=== PATIENT | male | born 1955 | race Caucasian/White ===

== ENCOUNTER 2017-10-27 09:17 | Outpatient (CLI) | payer OTHER | END 2017-10-27 09:18 | disposition home or self-care (01) | LOC: BICRAD 09:17 | PROVIDERS: ATTEND Internal Medicine Critical Care Medicine | DX: J18.9 Pneumonia, unspecified organism (principal) | CPT/HCPCS: 71046 ==

== ENCOUNTER 2018-02-20 13:48 | Emergency (ER) | payer OTHER ==
[2018-02-20 14:07] LABS: #Basophils 0.1 thou/uL (0.0-0.2); #Eosinphils 0.1 thou/uL (0.0-0.7); #Lymphocytes 1.9 thou/uL (1.20-3.40); #Monocytes 0.8 thou/uL (0.11-0.59); #Neutrophils 7.2 thou/uL (1.40-6.50); %Basophils 0.8 % (0.0-1.0); %Eosinophils 0.7 % (0.0-10.0); %Lymphocytes 19.1 % (21.0-51.0); %Monocytes 7.7 % (0.0-10.0); %Neutrophils 71.7 % (42.0-75.0); Hemoglobin 15.4 g/dL (14.0-18.0); Mean Corpuscular HGB CONC 34.8 g/dL (32.0-36.0); Mean Corpuscular Hemoglobin 32.1 pg (27.0-31.0); Mean Corpuscular Volume 92.3 fL (78.0-98.0); Mean Platelet Volume 7.8 fL (7.4-10.4); Platelet Count 210 thou/uL (130-400); RBC Distribution Width 10.8 % (11.5-14.5); Red Blood Cell (RBC) Count 4.78 mill/uL (4.70-6.10); White Blood Cell (WBC) Count 10.1 thou/uL (4.8-10.8)
[2018-02-20 14:20] LABS: Anion Gap 14 mmol/L (10-20); BUN (Urea Nitrogen) 20 mg/dL (8.4-25.7); Calc. Creatinine Clearance 0 mL/min (70-130); Calcium 9.8 mg/dL (7.8-10.44); Carbon Dioxide 22 mmol/L (23-31); Chloride 108 mmol/L (98-107); Estimated GFR-MDRD Greater than 90; Glucose 113 mg/dL (80-115); Magnesium 2.2 mg/dL (1.6-2.6); Potassium 3.9 mmol/L (3.5-5.1); Sodium 140 mmol/L (136-145)
[2018-02-20 14:24] LABS: Troponin I Less than 0.010 ng/mL (< 0.028)
[2018-02-20 14:27] LABS: CKMB 9.3 ng/mL (0-6.6)
[2018-02-20] MEDS ORDERED: Ketorolac Tromethamine 30 MG/ML VIAL ONE (14:45)
--- NOTE | 2018-02-20 15:04 | RAD ---
SINGLE VIEW OF THE CHEST: COMPARISON: 10/18/16. History Chest pain that began 3-1/2 weeks ago and worsened today. FINDINGS: A single view of the chest shows a normal-size cardiomediastinal silhouette. The patient is status p ost sternotomy. There is no evidence of consolidation, mass, or pleural effusion. IMPRESSION: No evidence of acute cardiopulmonary disease. POS: [facility]
[2018-02-20 16:23] LABS: Troponin I Less than 0.010 ng/mL (< 0.028)
== END 2018-02-20 16:32 | disposition home or self-care (01) ==
LOC: SCSER 13:48
DX: R07.9 Chest pain, unspecified (principal); I10 Essential (primary) hypertension; E11.9 Type 2 diabetes mellitus without complications; E78.5 Hyperlipidemia, unspecified; Z79.899 Other long term (current) drug therapy; Z79.82 Long term (current) use of aspirin
CPT/HCPCS: 71045; 80048; 82553; 83735; 84484; 85025; 93005; 96361; 96374; J1885

== ENCOUNTER 2018-09-14 04:00 | Emergency (ER) | payer OTHER ==
[2018-09-14] MEDS ORDERED: Nitroglycerin 2% Ointment 1 INCH/1 GM Packet ONE (04:14)
[2018-09-14] MEDS ORDERED: Pantoprazole 40 MG VIAL ONE (04:36)
[2018-09-14] MEDS ORDERED: Ondansetron PF 4 MG/2 ML Vial ONE (04:36)
[2018-09-14 04:44] LABS: #Basophils 0.1 thou/uL (0.0-0.2); #Eosinphils 0.3 thou/uL (0.0-0.7); #Lymphocytes 2.3 thou/uL (1.20-3.40); #Monocytes 0.8 thou/uL (0.11-0.59); #Neutrophils 4.5 thou/uL (1.40-6.50); %Eosinophils 3.6 % (0.0-10.0); %Lymphocytes 28.8 % (21.0-51.0); %Monocytes 9.6 % (0.0-10.0); %Neutrophils 56.9 % (42.0-75.0); Hemoglobin 16.9 g/dL (14.0-18.0); Mean Corpuscular HGB CONC 34.3 g/dL (32.0-36.0); Mean Corpuscular Hemoglobin 32.6 pg (27.0-31.0); Mean Corpuscular Volume 95.3 fL (78.0-98.0); Mean Platelet Volume 7.9 fL (7.4-10.4); Platelet Count 209 thou/uL (130-400); RBC Distribution Width 11.6 % (11.5-14.5); Red Blood Cell (RBC) Count 5.18 mill/uL (4.70-6.10); White Blood Cell (WBC) Count 7.8 thou/uL (4.8-10.8)
[2018-09-14 04:49] LABS: ALT (SGPT) 48 U/L (8-55); AST (SGOT) 32 U/L (5-34); Albumin 4.3 g/dL (3.4-4.8); Alkaline Phosphatase 103 U/L (40-150); Anion Gap 14 mmol/L (10-20); BUN (Urea Nitrogen) 24 mg/dL (8.4-25.7); Bilirubin, Total 0.4 mg/dL (0.2-1.2); Calc. Creatinine Clearance 0 mL/min (70-130); Calcium 9.5 mg/dL (7.8-10.44); Carbon Dioxide 22 mmol/L (23-31); Chloride 108 mmol/L (98-107); Estimated GFR-MDRD 83; Globulin 2.9 g/dL (2.4-3.5); Glucose 134 mg/dL (80-115); Potassium 3.8 mmol/L (3.5-5.1); Protein, Total 7.2 g/dL (5.8-8.1); Sodium 140 mmol/L (136-145)
[2018-09-14] MEDS ORDERED: Acetaminophen 500 MG TAB ONE (06:21)
[2018-09-14 07:39] LABS: Troponin I Less than 0.010 ng/mL (< 0.028)
--- NOTE | 2018-09-14 08:23 | RAD ---
CHEST 1 VIEW: Date: 09/14/18 HISTORY: Pain. COMPARISON: 02/20/18. FINDINGS: There are sternotomy wires. Normal cardiac silhouette. Pulmonary vessels and hilum are normal. Costop hrenic angles are clear. No masses or consolidation. No pneumothorax or osseous abnormalities. IMPRESSION: No acute cardiopulmonary process. POS: [facility]
== END 2018-09-14 08:02 | disposition home or self-care (01) ==
LOC: SCSER 04:00
DX: R07.2 Precordial pain (principal); E11.9 Type 2 diabetes mellitus without complications; E78.5 Hyperlipidemia, unspecified; I10 Essential (primary) hypertension; Z79.82 Long term (current) use of aspirin; Z79.899 Other long term (current) drug therapy
CPT/HCPCS: 71045; 80053; 83880; 84484; 85025; 93005; 96374; 96375; C9113; J2405

== ENCOUNTER 2018-10-28 13:21 | Outpatient (CLI) | payer OTHER ==
--- NOTE | 2018-10-28 15:38 | RAD ---
CERVICAL SPINE SERIES SEVEN VIEWS: History: Neck pain. FINDINGS: The vertebral bodies are normal in height. Degenerative osteophytes are seen. There is minimal disc n arrowing at C6-7. There are degenerative facet changes noted. I do not see any significant abnormal m otion on the flexion or extension views. IMPRESSION: Moderate arthritic changes of the spine. POS: [facility]
--- NOTE | 2018-10-28 15:40 | MRI ---
MR OF THE CERVICAL SPINE WITHOUT CONTRAST: 10/28/18 INDICATION: 63-year-old male with neck pain and left upper extremity weakness ongoing fore eight weeks. TECHNIQUE: Multiplanar and multisequence MR images were obtained in the cervical spine without IV contrast. No r adiographs, CT or MR comparisons are available. FINDINGS: The visualized posterior fossa has a normal appearance. The craniocervical junction appears within normal limits. There are mild degenerative changes seen at the atlantoaxial articulation. At C2-3, there is a mild broad based bulge with mild facet joint degenerative changes but no apprecia ble central canal or neural foraminal narrowing. At C3-4, there is uncovertebral hypertrophy and facet joint degenerative change. The facet joint dege nerative changes and uncovertebral hypertrophy is greater on the left inducing moderate to severe lef t and mild right neural foraminal narrowing. Broad based bulge mildly effaces the ventral subarachnoi d space but without cord contact. At C4-5, there is a broad based bulge with uncovertebral hypertrophy and facet joint degenerative drew nge inducing mild to moderate left and mild right neural foraminal narrowing. The mild broad based bu lge does mildly efface the ventral subarachnoid space without cord contact. At C5-6, there is uncovertebral hypertrophy and facet hypertrophy inducing moderate bilateral neural foraminal narrowing. The broad based bulge causes mild ventral effacement of the subarachnoid space w ithout cord contact. At C6-7, there is mild facet joint degenerative change and mild uncovertebral hypertrophy. There is m ild right neural foraminal encroachment. At C7-T1, there is no appreciable central canal or neural foraminal narrowing. IMPRESSION: Moderate spondylosis of the cervical spine with moderate to severe left neural foraminal narrowing at C3-4. There is mild to moderate left neural foraminal narrowing at C4-5 and moderate bilateral neura l foraminal narrowing at C5-6. POS: [facility]
== END 2018-10-28 13:22 | disposition home or self-care (01) ==
LOC: MRI 13:21
PROVIDERS: ATTEND Anesthesiology Pain Medicine
DX: M47.812 Spondylosis without myelopathy or radiculopathy, cervical region (principal); M48.02 Spinal stenosis, cervical region
CPT/HCPCS: 72052; 72141

== ENCOUNTER 2019-11-05 08:25 | Emergency (ER) | payer OTHER ==
[2019-11-05 09:10] LABS: #Eosinphils 0.3 thou/uL (0.0-0.7); #Monocytes 0.6 thou/uL (0.11-0.59); #Neutrophils 3.7 thou/uL (1.40-6.50); %Basophils 0.3 % (0.0-1.0); %Lymphocytes 29.9 % (21.0-51.0); %Monocytes 9.4 % (0.0-10.0); %Neutrophils 55.3 % (42.0-75.0); Hemoglobin 15.7 g/dL (14.0-18.0); Mean Corpuscular HGB CONC 33.2 g/dL (32.0-36.0); Mean Corpuscular Hemoglobin 32.9 pg (27.0-31.0); Mean Corpuscular Volume 99.1 fL (78.0-98.0); Mean Platelet Volume 8.1 fL (7.4-10.4); Platelet Count 216 thou/uL (130-400); RBC Distribution Width 11.3 % (11.5-14.5); Red Blood Cell (RBC) Count 4.78 mill/uL (4.70-6.10); White Blood Cell (WBC) Count 6.8 thou/uL (4.8-10.8)
[2019-11-05 09:37] LABS: ALT (SGPT) 31 U/L (8-55); AST (SGOT) 20 U/L (5-34); Albumin 4.2 g/dL (3.4-4.8); Alkaline Phosphatase 95 U/L (40-110); Anion Gap 11 mmol/L (10-20); BUN (Urea Nitrogen) 21 mg/dL (8.4-25.7); Bilirubin, Total 0.4 mg/dL (0.2-1.2); Calc. Creatinine Clearance 0 mL/min (70-130); Calcium 9.3 mg/dL (7.8-10.44); Carbon Dioxide 26 mmol/L (23-31); Chloride 107 mmol/L (98-107); Estimated GFR-MDRD 68; Globulin 2.8 g/dL (2.4-3.5); Glucose 144 mg/dL (80-115); Potassium 4.4 mmol/L (3.5-5.1); Sodium 140 mmol/L (136-145)
== END 2019-11-05 10:48 | disposition home or self-care (01) ==
LOC: ERS 08:25
DX: R55 Syncope and collapse (principal); E11.9 Type 2 diabetes mellitus without complications; I10 Essential (primary) hypertension; E78.5 Hyperlipidemia, unspecified; Z79.82 Long term (current) use of aspirin; Z79.899 Other long term (current) drug therapy; Z79.84 Long term (current) use of oral hypoglycemic drugs
CPT/HCPCS: 36416; 80053; 84484; 85025; 93005

== ENCOUNTER 2020-02-10 15:07 | Outpatient (CLI) | payer OTHER ==
--- NOTE | 2020-02-10 15:55 | RAD ---
Exam: 4 views lumbar spine HISTORY: Acute lumbar radiculopathy. Low back pain extending down the right leg FINDINGS: 5 lumbar type vertebra. Lumbar spine vertebral body height is maintained. No fracture. In t he neutral upright position, there is 1.7 mm of retrolisthesis of L1 upon L2. No spondylolysis. There is osteophyte formation at L1-L2, L2-L3, L3-L4 and L5-S1. There is mild loss of disc space heig ht at L1-L2. Disc space height is preserved from L2-L3 through L5-S1. Upon extension and flexion, no significant change in alignment with regards to the retrolisthesis of L1 upon L2. Minimal atherosclerosis of the aorta Visualized bony pelvis and sacrum are intact There is osteophyte formation along the distal thoracic spine IMPRESSION: 1. Grade 1 retrolisthesis of L1 upon L2. 2. Osteophyte formation involving the distal thoracic spine and upper lumbar spine. No significant lo ss of disc space height. 3. No fracture.
--- NOTE | 2020-02-10 16:09 | MRI ---
MRI lumbar spine noncontrast: HISTORY: Acute Lumbar radiculopathy COMPARISON: None FINDINGS: Appropriate T1 marrow signal intensity of the lumbar vertebra. Lumbar spine vertebral body height is maintained. There is no fracture. No MR evidence of spondylolisthesis or spondylolysis. Spondylolisthesis noted on the lumbar spine radiograph is not apparent on the current MRI. No significant STIR hyperintensity to suggest vertebral body edema or ligamentous injury Appropriate signal intensity visualized paraspinal muscles and solid organs Conus medullaris terminates at the upper aspect of L1 T12-L1:Adequate disc hydration. No significant central canal stenosis or significant neural foraminal narrowing L1-L2:Adequate disc hydration. No posterior disc abnormality. No significant central canal stenosis o r significant neural foraminal narrowing L2-L3:Adequate disc hydration. No posterior disc abnormality. No significant central canal stenosis o r significant neural foraminal narrowing L3-L4:Adequate disc hydration. No posterior disc abnormality. Mild right facet hypertrophy. No signif icant central canal stenosis. Mild right foraminal narrowing, due to disc material and facet hypertrophy. Patent left neural foramen. L4-L5:Adequate disc hydration. Broad-based disc bulge minimally flattens the ventral thecal sac. Ther e is no significant central canal stenosis. There is mild to moderate bilateral facet hypertrophy. Trace amount of fluid in the left facet joint. Right neural foramen is mildly narrowed. Mild to moder ate left foraminal narrowing due to disc material and facet hypertrophy. L5-S1:Adequate disc hydration. No severe loss of disc space height. Broad-based disc bulge minimally contacts the ventral thecal sac. Disc material encroaches upon the right subarticular zone and minimally contacts the traversing right S1 nerve root. Left subarticular zone is unremarkable. There is no significant stenosis of the thecal sac. Mild bilateral foraminal narrowing, due to disc material. IMPRESSION: 1. No significant central canal stenosis or significant neural foraminal narrowing throughout the lum bar spine. 2. Mild to moderate facet hypertrophy at L4-L5 and mild right facet hypertrophy at L3-L4. 3. Disc material encroaches upon the right subarticular zone at L5-S1. No significant mass effect or obscuration of the traversing right S1 nerve root. 4. No evidence of significant neural foraminal narrowing throughout the lumbar spine. Transcribed Date/Time: 02/10/2020 7:41 PM
== END 2020-02-10 15:08 | disposition home or self-care (01) ==
LOC: TBSIIMAG 15:07
PROVIDERS: ATTEND Anesthesiology Pain Medicine
DX: M51.16 Intervertebral disc disorders with radiculopathy, lumbar region (principal); M51.17 Intervertebral disc disorders with radiculopathy, lumbosacral region; M43.16 Spondylolisthesis, lumbar region; M47.26 Other spondylosis with radiculopathy, lumbar region
CPT/HCPCS: 72120; 72148

== ENCOUNTER 2020-05-25 09:16 | Outpatient (CLI) | payer OTHER ==
--- NOTE | 2020-05-25 10:29 | CT ---
CT OF THE ABDOMEN AND PELVIS WITH IV CONTRAST INDICATION: History of diverticulitis and abdominal pain COMPARISON: March 04, 2017 CT the abdomen and pelvis FINDINGS: ABDOMEN: Lung bases: There is some subsegmental volume loss in the right middle lobe. Liver: There is diffuse fatty liver Gallbladder: Small suspected stone is seen within the gallbladder neck. Pancreas: Normal. Adrenal glands: Normal. Spleen: Normal. Kidneys and ureters: There are tiny bilateral renal cysts. No hydronephrosis is evident. Vasculature: There are mild vascular calcifications seen involving the visualized vasculature. Lymph nodes:No lymphadenopathy. Free fluid in abdomen:No free fluid is evident. PELVIS: Small and large bowel: Normal Appendix:Normal Bladder: Normal. Rectal and perirectal soft tissues:Normal. Reproductive structures: Normal. Free fluid in pelvis: No free fluid is evident. Lymphadenopathy pelvis: No lymphadenopathy is evident. Osseous structures: No acute osseous abnormality. No destructive osteolytic or osteoblastic lesion i s identified. There is scattered degenerative and osteoarthritic changes. Soft tissues:Bilateral hernias. IMPRESSION: 1. Fatty liver. 2. Cholelithiasis. 3. Bilateral renal cysts.
== END 2020-05-25 09:17 | disposition home or self-care (01) ==
LOC: SCSCT 09:16
PROVIDERS: ATTEND Internal Medicine Gastroenterology
DX: R10.30 Lower abdominal pain, unspecified (principal); R50.9 Fever, unspecified; N28.1 Cyst of kidney, acquired; K80.20 Calculus of gallbladder without cholecystitis without obstruction; K76.0 Fatty (change of) liver, not elsewhere classified
CPT/HCPCS: 74177

== ENCOUNTER 2023-05-05 09:44 | Emergency (ER) | payer BC ==
[2023-05-05 10:41] LABS: #Eosinphils 0.1 thou/uL (0.0-0.7); #Monocytes 0.5 thou/uL (0.11-0.59); #Neutrophils 4.2 thou/uL (1.40-6.50); %Basophils 0.6 % (0.0-1.0); %Eosinophils 2.1 % (0.0-10.0); %Lymphocytes 22.4 % (21.0-51.0); %Monocytes 8.1 % (0.0-10.0); %Neutrophils 66.6 % (42.0-75.0); Hematocrit 49.5 % (42.0-52.0); Hemoglobin 16.5 g/dL (14.0-18.0); Mean Corpuscular HGB CONC 33.3 g/dL (32.0-36.0); Mean Corpuscular Hemoglobin 32.8 pg (27.0-31.0); Mean Corpuscular Volume 98.4 fl (78.0-98.0); Mean Platelet Volume 9.9 fL (7.4-10.4); Platelet Count 202 10x3/uL (130-400); RBC Distribution Width 12.2 % (11.5-14.5); Red Blood Cell (RBC) Count 5.03 mill/uL (4.70-6.10); White Blood Cell (WBC) Count 6.3 10x3/uL (4.8-10.8)
[2023-05-05 11:23] LABS: ALT (SGPT) 33 U/L (8-55); AST (SGOT) 26 U/L (5-34); Albumin 4.3 g/dL (3.4-4.8); Alkaline Phosphatase 73 U/L (40-110); Anion Gap 13 mmol/L (10-20); BUN (Urea Nitrogen) 23 mg/dL (8.4-25.7); Bilirubin, Total 0.4 mg/dL (0.2-1.2); CK (CPK) 381 U/L (30-200); Calc. Creatinine Clearance 0 mL/min (70-130); Calcium 9.4 mg/dL (7.8-10.44); Carbon Dioxide 22 mmol/L (23-31); Chloride 105 mmol/L (98-107); Estimated GFR 71; Globulin 2.7 g/dL (2.4-3.5); Glucose 162 mg/dL (80-115); Magnesium 2.1 mg/dL (1.6-2.6); Potassium 4.8 mmol/L (3.5-5.1); Sodium 135 mmol/L (136-145)
[2023-05-05 11:27] LABS: Troponin I Less than 0.010 ng/mL (< 0.028)
== END 2023-05-05 12:17 | disposition home or self-care (01) ==
LOC: ERS 09:44 → EEVIPCON 09:44 → ERS 12:17
DX: R55 Syncope and collapse (principal); E11.9 Type 2 diabetes mellitus without complications; E78.5 Hyperlipidemia, unspecified; I10 Essential (primary) hypertension; Z79.899 Other long term (current) drug therapy
CPT/HCPCS: 36415; 36416; 71045; 80053; 82550; 83735; 83880; 84443; 84484; 85025; 93005; 96360; 96361